=== PATIENT | female | born 1990 | race African-American/Black ===

== ENCOUNTER → 2020-11-01 | Outpatient (CLI) | payer OTHER ==
--- NOTE | 2020-11-01 10:31 | REPMRS ---
Patient History Patient is nulliparous. No known family history of cancer. Benign lumpectomy of the left breast, July 2015. Patient denies breast lump at this time.] Took hormonal contraceptives for 2 years 6 months. Diagnostic Bilateral Mammo: November 01, 2020 - Exam #: [id number] Bilateral CC and MLO view(s) were taken. Technologist: Alina Teague, Technologist FINDINGS: The breast tissue is extremely dense which could obscure a lesion on mammography. The Volpara volumetric breast density category is: D. There is a fairly symmentric extremely dense fibroglandular pattern in the breast parenchyma. There is no evidence of dominant mass, architectural distortion, or grouped microcalcification typical of malignancy. 3-D tomosynthesis shows no additional findings. Assessment: BI-RADS/ACR category 1 mammogram. Negative Mammogram. Recommendation Routine screening mammogram of both breasts in 1 year (for women over age 40). This patient's [facility] Lifetime Breast Cancer RIsk is estimated at 15.5 %. This mammogram was interpreted with the aid of an FDA-approved computer-aided dectection system. Electronically Signed By: Fausto Brady MD 11/01/20 [id number]
== END ==
LOC: M WHC 09:37
PROVIDERS: ATTEND Physician Assistant Medical
DX: N63.12 Unspecified lump in the right breast, upper inner quadrant (principal); N63.14 Unspecified lump in the right breast, lower inner quadrant; N63.23 Unspecified lump in the left breast, lower outer quadrant
CPT/HCPCS: 77066; G0279